=== PATIENT | female | born 1970 | race Hispanic/Latino ===

== ENCOUNTER → 2022-07-29 | Outpatient (CLI) | payer OTHER ==
[~2022-07-29] VITALS: Ht 2.5 cm; Wt 112.0 kg
== END | disposition home or self-care (01) ==
LOC: DTH 09:06
PROVIDERS: ATTEND Surgery
DX: Z71.3 Dietary counseling and surveillance (principal); E66.01 Morbid (severe) obesity due to excess calories; E11.9 Type 2 diabetes mellitus without complications; I10 Essential (primary) hypertension; M19.91 Primary osteoarthritis, unspecified site; K21.9 Gastro-esophageal reflux disease without esophagitis; G47.33 Obstructive sleep apnea (adult) (pediatric); Z68.42 Body mass index [BMI] 45.0-49.9, adult
CPT/HCPCS: 97802

== ENCOUNTER 2022-09-22 11:00 | Inpatient (IN) | payer OTHER ==
[~2022-09-22] VITALS: Ht 154.9 cm; Wt 105.4 kg
[2022-09-22 12:03] LABS: BASOPHILS % (AUTO) 0.8 % (0.0-5.0); EOSINOPHILS % (AUTO) 1.6 % (0.0-8.0); HEMATOCRIT 36.6 % (36-48); LYMPHOCYTES % (AUTO) 29.3 % (21.0-51.0); MEAN CORPUSCULAR HEMOGLOBIN 26.2 pg (27.0-33.0); MEAN CORPUSCULAR HGB CONC 30.6 g/dL (32.0-36.0); MEAN CORPUSCULAR VOLUME 85.7 fL (79-99); MONOCYTES % (AUTO) 6.1 % (3.0-13.0); NEUTROPHILS % (AUTO) 61.8 % (40.0-77.0); PLATELET COUNT (AUTO) 384 K/uL (130-400); RED BLOOD CELL COUNT(AUTO) 4.27 MIL/uL (4.00-5.50); RED CELL DISTRIBUTION WIDTH 15.3 % (11.0-15.5); WHITE BLOOD COUNT (AUTO) 7.3 K/uL (4.8-10.8)
[2022-09-22 12:15] LABS: INR 0.93 (0.85-1.15); PROTHROMBIN TIME 10.5 SEC (9.6-11.6)
[2022-09-22 12:16] LABS: PARTIAL THROMBOPLASTIN TIME 27.3 SEC (26.3-35.5)
[2022-09-22 12:18] VITALS: BP 117/55; PULSE 62; RESP 20
[2022-09-22] MEDS ORDERED: LOSA50TA64 PO (12:31)
[2022-09-22 12:36] LABS: CREATININE 0.7 mg/dL (0.5-1.5); POTASSIUM 3.9 mmol/L (3.5-5.1)
[2022-09-26] VITALS (27 sets, daily range): BP systolic 124–165; BP diastolic 52–92; PULSE 58–97; RESP 16–21
[2022-09-26] MEDS ORDERED: CEFAZOLIN SODIUM 1 GM VIAL ONE (10:20)
[2022-09-26] MEDS ORDERED: LACTATED RINGERS 1000ML 1,000 ML IV ONE (10:20)
[2022-09-26] MEDS ORDERED: DEXAMETHASONE SOD PHOSPHATE 10MG/ML 1ML VIAL ONE (10:32)
[2022-09-26] MEDS ORDERED: GLYCOPYRROLATE 1 MG/5 ML SYRINGE ONE (10:32)
[2022-09-26] MEDS ORDERED: ONDANSETRON 4MG INJ ONE ×2 (10:32→13:58)
[2022-09-26] MEDS ORDERED: LIDOCAINE PF 100MG/5ML (2%) SYRINGE 5ML ONE (10:32)
[2022-09-26] MEDS ORDERED: SUCCINYLCHOLINE 200MG/10ML SYR ONE (10:32)
[2022-09-26] MEDS ORDERED: PROPOFOL 10 MG/ML 20ML VIAL IV ONE (10:33)
[2022-09-26] MEDS ORDERED: ROCURONIUM 10MG/1ML SYR 10 MG/ML ML ONE (10:33)
[2022-09-26] MEDS ORDERED: FENTANYL CITRATE PF 50 MCG/1 ML 2ML VIAL ONE ×3 (10:33→14:01)
[2022-09-26] MEDS ORDERED: MIDAZOLAM HCL 1 MG/ML 2ML VIAL ONE (10:33)
[2022-09-26] MEDS ORDERED: BUPIVACAINE/PF 0.5% 10ML VIAL ONE (11:21)
[2022-09-26] MEDS ORDERED: METHYLENE BLUE 5 MG/ML AMP ONE (11:21)
[2022-09-26] MEDS ORDERED: HEPARIN 1,000 UNIT VIAL ONE (11:46)
[2022-09-26] MEDS ORDERED: HEPARIN 5,000 UNIT VIAL ONE (11:48)
[2022-09-26] MEDS ORDERED: CEFAZOLIN SODIUM 3 GM VIAL IVPB ONE (12:02)
[2022-09-26] MEDS ORDERED: MEPERIDINE-PF 25 MG/ML SYG ONE (13:58)
[2022-09-26] MEDS ORDERED: MORPHINE 4 MG SYG IVP PRN (16:00)
[2022-09-26] MEDS: LACTATED RINGERS 1000ML 1,000 ML IV SCH (16:00)
[2022-09-26] MEDS ORDERED: MORPHINE 2 MG SYG IM PRN (16:00)
[2022-09-26] MEDS ORDERED: PROMETHAZINE HCL 25 MG/ML 1ML AMPULE IM PRN (16:00)
[2022-09-26] MEDS ORDERED: MORPHINE PCA 50MG/50ML NS IV SCH (16:00)
[2022-09-26] MEDS ORDERED: MORPHINE 2 MG SYG IVP PRN (16:00)
[2022-09-26] MEDS ORDERED: MEPERIDINE-PF 25 MG/ML SYG IVP PRN (16:00)
[2022-09-26] MEDS: HEPARIN 5,000 UNIT VIAL SQ SCH (18:13)
[2022-09-26] MEDS: FAMOTIDINE 20MG VIAL IV SCH (21:05)
[2022-09-27] VITALS: BP 133/67; PULSE 78; RESP 20
[2022-09-27] MEDS: LACTATED RINGERS 1000ML 1,000 ML IV SCH ×2 (01:12→12:00)
[2022-09-27 04:00] VITALS: BP 150/80; PULSE 87; RESP 20
[2022-09-27] MEDS: HEPARIN 5,000 UNIT VIAL SQ SCH ×2 (04:03→16:00)
[2022-09-27 08:00] VITALS: BP 135/65; PULSE 85; RESP 16; O2SAT 94
[2022-09-27] MEDS: FAMOTIDINE 20MG VIAL IV SCH (08:52)
[2022-09-27 11:56] VITALS: BP 154/82; PULSE 82; RESP 20
[2022-09-27 16:00] VITALS: BP 111/54; PULSE 71; RESP 20
[2022-09-27] MEDS ORDERED: TYL3LL PO (16:38)
== END 2022-09-27 17:45 | disposition home or self-care (01) | DRG 621 ==
LOC: DAHIP 09-26 09:47 → 4BH 09-26 15:05
PROVIDERS: ADMIT Surgery; ATTEND Surgery
PROC: 0DB64Z3 Excision of Stomach, Percutaneous Endoscopic Approach, Vertical (ICD-10-PCS; principal; 2022-09-26 12:26)
DX: E66.01 Morbid (severe) obesity due to excess calories (principal); E88.81 Metabolic syndrome and other insulin resistance; F41.9 Anxiety disorder, unspecified; Z20.822 Contact with and (suspected) exposure to COVID-19; I10 Essential (primary) hypertension; Z68.41 Body mass index [BMI] 40.0-44.9, adult
CPT/HCPCS: 36415; 80048; 81025; 82948; 84703; 85025; 85610; 85730; 87426; 93005; 97039; G0378; J0330; J0690; J1100; J1644; J2001; J2175; J2250; J2270; J2405; J2550; J2704; J3010; J3490; J7030; J7120; Q9968; A4215; A4221; A4222; A4223; A4600; A4649; A4663; A4930; A6260; G8980-CI; G8983-CI

== ENCOUNTER 2023-01-12 19:39 | Emergency (ER) | payer BC, OTHER ==
[~2023-01-12] VITALS: Ht 154.9 cm; Wt 89.8 kg
[~2023-01-12 19:39] MED LIST: LOSA50TA64 PO
[2023-01-12] MEDS ORDERED: AMLO-257 PO (20:03)
[2023-01-12] MEDS ORDERED: LOSA50TA64 PO (20:03)
[2023-01-12 20:18] LABS: BASOPHILS # (AUTO) 0.06 K/uL (0.00-0.20); BASOPHILS % (AUTO) 0.6 % (0.0-5.0); HEMATOCRIT 35.4 % (36-48); IMMATURE GRANULOCYTE ABSOLUTE 0.05 K/uL (0-1); LYMPHOCYTES # (AUTO) 1.9 K/uL (1.0-4.8); LYMPHOCYTES % (AUTO) 18.3 % (21.0-51.0); MEAN CORPUSCULAR HEMOGLOBIN 27.4 pg (27.0-33.0); MEAN CORPUSCULAR HGB CONC 31.9 g/dL (32.0-36.0); MEAN CORPUSCULAR VOLUME 85.9 fL (79-99); MONOCYTES # (AUTO) 0.8 K/uL (0.1-1.0); MONOCYTES % (AUTO) 7.8 % (3.0-13.0); NEUTROPHILS # (AUTO) 7.5 K/uL (1.8-7.7); NEUTROPHILS % (AUTO) 71.8 % (40.0-77.0); PLATELET COUNT (AUTO) 346 K/uL (130-400); RED BLOOD CELL COUNT(AUTO) 4.12 MIL/uL (4.00-5.50); RED CELL DISTRIBUTION WIDTH 14.2 % (11.0-15.5); WHITE BLOOD COUNT (AUTO) 10.5 K/uL (4.8-10.8)
[2023-01-12 20:26] LABS: CREATININE 0.8 mg/dL (0.5-1.5)
[2023-01-12 20:30] LABS: ALBUMIN 3.6 g/dL (3.5-5.0); TOTAL PROTEIN, SERUM 7.4 g/dL (6.0-8.3)
[2023-01-12] MEDS ORDERED: FAMOTIDINE 20MG VIAL IV ONE (20:30)
[2023-01-12] MEDS ORDERED: MORPHINE 4 MG SYG IVP ONE (20:30)
[2023-01-12] MEDS ORDERED: METOCLOPRAMIDE 10 MG/2 ML VIAL IVP ONE (20:30)
[2023-01-12] MEDS ORDERED: LACTATED RINGERS 1000ML 1,000 ML IV ONE (20:30)
[2023-01-12 22:31] LABS: APPEARANCE,URINE CLOUDY (CLEAR); BILIRUBIN,URINE NEGATIVE (NEGATIVE); COLOR,URINE YELLOW (YELLOW); GLUCOSE, URINE (UA) NEGATIVE (NEGATIVE); KETONES,URINE 20 mg/dL (NEGATIVE); LEUKOCYTE ESTERASE ,URINE NEGATIVE Leu/uL (NEGATIVE); NITRATE,URINE NEGATIVE (NEGATIVE); OCCULT BLOOD,URINE NEGATIVE (NEGATIVE); PH,URINE 5.5 (5.0-8.0); PROTEIN,URINE 20 mg/dL (NEGATIVE)
[2023-01-12 22:35] LABS: ADD UA MICROSCOPIC YES
[2023-01-12 22:54] LABS: MUCUS,URINE MANY LPF (None Seen); SQUAMOUS EPITHELIAL CELL,UR MOD /HPF (0-2)
[2023-01-12] MEDS ORDERED: METO-296 PO (23:25)
[2023-01-12] MEDS ORDERED: PANT40TA PO (23:25)
[2023-01-12 23:38] VITALS: BP 132/79; PULSE 69; RESP 17; O2SAT 98
== END 2023-01-12 23:40 | disposition home or self-care (01) ==
LOC: EDH 19:39
DX: K29.70 Gastritis, unspecified, without bleeding (principal); I10 Essential (primary) hypertension; Z79.899 Other long term (current) drug therapy
CPT/HCPCS: 99284; 96374; 96375; 84484; 80053; 83690; 85025; 81001; 36415; 93005; J7120; J3490; J2270; J2765

== ENCOUNTER 2024-08-25 20:30 | Emergency (ER) | payer BC ==
[~2024-08-25] VITALS: Ht 152.4 cm; Wt 81.6 kg
[~2024-08-25 20:30] MED LIST changes: +AMLO-257 PO; +METO-296 PO; +PANT40TA PO
--- NOTE | 2024-08-25 21:05 | ERN ---
ED Note History of Present Illness Stated Complaint: BACK PAIN Chief Complaint: Back Pain-No Injury Time Seen by MD: 21:06 Time Seen by Midlevel: 21:06 Dictation: Ms. Wilson is a 54 year old female with history of obesity/gastric sleeve (2 years ago) who presented to the Emergency Department this evening for evaluation of back pain. She repots low back pain that began approximately 24 hours ago. She has had it at around 0400 she developed worsening bilateral flank/low back pain with chills, nausea, and vomiting. She states that the pain intensified this evening at 1700. She states she took dose OTC Azo which did not help. She denies history of similar symptoms/kidney stones. She denies fever, chills, shortness of breath, cough, chest pain, palpitations, edema, abdominal pain, hematemesis, constipation, diarrhea, melena, hematochezia, hematuria, headache, dizziness, or focal weakness/paresthesia Allergies: Coded Allergies: No Known Drug Allergies (Unverified Allergy, Unknown, 09/22/22) Home Meds Active Scripts Metoclopramide HCl (Reglan) 10 Mg Tablet, 10 MG PO QID, #120 TAB 2 Refills Prov:RENE COVARRUBIAS Sr., MD 01/12/23 Pantoprazole Sodium (Protonix) 40 Mg Tablet.dr, 40 MG PO DAILY, #30 TAB 2 Refills Prov:RENE COVARRUBIAS Sr., MD 01/12/23 Reported Medications Amlodipine Besylate (Amlodipine Besylate) 5 Mg Tablet, 5 MG PO DAILY, TAB 01/12/23 Losartan Potassium (Losartan Potassium) 50 Mg Tablet, 50 MG PO DAILY, TAB 01/12/23 Losartan Potassium (Losartan Potassium) 50 Mg Tablet, 50 MG PO AM, TAB 09/22/22 Past Medical History Past Medical History: No Pertinent History Surgical History: Cholecystectomy, Bariatric Surgery PSYCH History: no pertinent psych hx Social History: Negative, Lives with family LMP: Aug 18, 2024 RN Note Reviewed/Agreed w/PFSH: Yes Review of System Dictation REVIEW OF SYSTEMS: CONSTITUTIONAL: Patient denies fevers, sweats and weight changes. Reports fatigue and chills. EYES: Patient denies any visual symptoms. EARS, NOSE, AND THROAT: No difficulties with hearing. No symptoms of rhinitis or sore throat. CARDIOVASCULAR: Patient denies chest pains, palpitations, orthopnea and paroxysmal nocturnal dyspnea. RESPIRATORY: No dyspnea on exertion, no wheezing or cough. GI: No diarrhea, constipation, abdominal pain, hematochezia or melena. Reports nausea and vomiting. : No urinary hesitancy or dribbling. No nocturia or urinary frequency. No abnormal urethral discharge. Reports low back/bilateral flank pain. MUSCULOSKELETAL: No myalgias or arthralgias. NEUROLOGIC: No chronic headaches, no seizures. Patient denies numbness, tingling or weakness. PSYCHIATRIC: Patient denies problems with mood disturbance. No problems with anxiety. ENDOCRINE: No excessive urination or excessive thirst. DERMATOLOGIC: Patient denies any rashes or skin changes. Initial Vital Sign VS Vital Signs Date Time Temp Pulse Resp B/P (MAP) Pulse Ox O2 Delivery O2 Flow Rate FiO2 08/25/24 20:32 98.8 80 19 146/91 98 Room Air 0 08/25/24 22:08 21 Physical Exam Dictation Vital signs: Reviewed. Afebrile. Constitutional: Uncomfortable/tearful Accompanied by significant other. Head/Face: Normocephalic, atraumatic. Eyes: Periorbital areas with no swelling, redness, or edema. Lids and lashes are normal. Conjunctival injection is absent. Sclera anicteric. Pupils equal, round, reactive to light. ENT: Pinnas intact and no signs of trauma or erythema. Ear canals clear and no discharge. TMs no erythema. No nasal discharge or bleeding noted. Oropharynx with no exudate, redness, swelling, masses, exudates, or evidence of obstruction. Uvula midline. Mucous membranes moist. Neck: Trachea midline, no masses palpated, and no cervical lymphadenopathy. No swelling. Supple, full range of motion. Chest/Axilla: No tenderness, no crepitus, no paradoxical movement, no retractions. Cardiovascular: Regular rate, regular rhythm, no murmur, no gallops. Symmetric pulses. No peripheral edema. Respiratory: Respirations even and unlabored. Lung sounds clear; no wheezes, rales or rhonchi. Room air spo2 98%. Gastrointestinal: Obese. No distention is appreciated. Bowel sounds are normal. No mass or organomegaly . There is no tenderness. No rebound. No rigidity. No voluntary or involuntary guarding. No Mittal's sign. : Urine cloudy/villalobos colored. + CVA tenderness bilaterally (worse on left) Neurological: Normal speech, gross motor function intact, gross sensory function intact. No focal weakness/Paresthesia. Musculoskeletal/Extremities: All extremities have full range of motion, no pain or tenderness on palpation. Symmetric pulses. Integumentary: Intact. Skin is normal color, warm and dry. Cap refill less than 2 seconds. Results (Laboratory/Radiology) Laboratory/Radiology Laboratory Tests Test 08/25/24 21:35 08/25/24 21:38 White Blood Count 12.2 K/uL (4.8-10.8) H Red Blood Count 4.10 MIL/uL (4.00-5.50) Hemoglobin 11.4 g/dL (12.0-16.0) L Hematocrit 35.6 % (36-48) L Mean Corpuscular Volume 86.8 fL (79-99) Mean Corpuscular Hemoglobin 27.8 pg (27.0-33.0) Mean Corpuscular Hemoglobin Concent 32.0 g/dL (32.0-36.0) Red Cell Distribution Width 14.1 % (11.0-15.5) Platelet Count 366 K/uL (130-400) Mean Platelet Volume 11.5 fL (7.5-10.5) H Immature Granulocyte % (Auto) 0.5 % (0-1) Neutrophils (%) (Auto) 72.6 % (40.0-77.0) Lymphocytes (%) (Auto) 17.9 % (21.0-51.0) L Monocytes (%) (Auto) 7.1 % (3.0-13.0) Eosinophils (%) (Auto) 1.2 % (0.0-8.0) Basophils (%) (Auto) 0.7 % (0.0-5.0) Neutrophils # (Auto) 8.8 K/uL (1.8-7.7) H Lymphocytes # (Auto) 2.2 K/uL (1.0-4.8) Monocytes # (Auto) 0.9 K/uL (0.1-1.0) Eosinophils # (Auto) 0.15 K/uL (0.00-0.70) Basophils # (Auto) 0.08 K/uL (0.00-0.20) Absolute Immature Granulocyte (auto 0.06 K/uL (0-1) Nucleated Red Blood Cells 0.0 % (0.0-0.19) Sodium Level 139 mmol/L (136-145) Potassium Level 3.8 mmol/L (3.5-5.1) Chloride Level 101 mmol/L (101-111) Carbon Dioxide Level 28 mmol/L (21-32) Blood Urea Nitrogen 17 mg/dL (7-18) Creatinine 0.8 mg/dL (0.5-1.0) Glomerular Filtration Rate Calc 89 mL/min (>90) Random Glucose 97 mg/dL (70-105) Total Calcium 9.3 mg/dL (8.5-10.1) Urine Color DARK-YELLOW (YELLOW) Urine Appearance CLOUDY (CLEAR) H Urine pH 6.0 (5.0-8.0) Urine Specific [place] 1.008 (1.001-1.031) Urine Protein 100 mg/dL (NEGATIVE) H Urine Glucose (UA) NEGATIVE mg/dL (NEGATIVE) Urine Ketones NEGATIVE mg/dL (NEGATIVE) Urine Occult Blood LARGE (NEGATIVE) H Urine Nitrate 1+ (NEGATIVE) H Urine Bilirubin NEGATIVE mg/dL (NEGATIVE) Urine Urobilinogen 0.2 mg/dL (0.2-1.0) Urine Leukocyte Esterase 500 Carlos/uL (NEGATIVE) H Urine RBC TNTC /HPF (0-1) H Urine WBC 51-100 /HPF (0-1) H Urine WBC Clumps (Auto) MOD /HPF (0-1) Urine Squamous Epithelial Cells RARE /HPF (0-2) Urine Other Crystals (Auto) 10 /HPF (None Seen) Urine Bacteria RARE /HPF (None Seen) Urine Yeast MOD /HPF (None Seen) Urine HCG, Qualitative NEGATIVE (NEGATIVE) Labs Reviewed?: Yes ED Course ED Course Orders Procedure Category Date Status Time Urinalysis Profile LAB 08/25/24 Complete 21:05 Cbc With Differential LAB 08/25/24 Complete 21:05 Basic Metabolic Panel LAB 08/25/24 Complete 21:05 ,Urine Test LAB 08/25/24 Complete 21:20 Ct Abdomen/Pelvis W/O CT 08/25/24 Resulted Contrast 21:20 Ketorolac 60mg/2ml PHA 08/25/24 Complete (Toradol 60mg/2ml) 21:30 Hydrocodone/Apap PHA 08/25/24 Complete 5/325 ([place] 5/325mg) 21:30 Culture Urine ARELY 08/25/24 In Process 21:53 Ceftriaxone 1g Vial PHA 08/25/24 Complete (Rocephine 1g Inj) 23:00 Current Medications Medications (Trade) Dose Ordered Sig/Kristie Route PRN Reason Start Time Stop Time Status Last Admin Dose Admin Acetaminophen/ Hydrocodone Bitart (NORco 5/325MG) 1 tab ONCE ONCE PO 08/25/24 21:30 08/25/24 21:31 DC 08/25/24 21:45 Ceftriaxone Sodium (ROCEphine 1G INJ) 1 gm ONCE ONCE IVPB 08/25/24 23:00 08/25/24 23:01 DC 08/25/24 23:00 Ketorolac Tromethamine (toRADol 60MG/ 2ML) 30 mg ONCE ONCE IM 08/25/24 21:30 08/25/24 21:31 DC 08/25/24 21:45 Vital Signs Date Time Temp Pulse Resp B/P (MAP) Pulse Ox O2 Delivery O2 Flow Rate FiO2 08/25/24 23:15 97.7 72 16 115/58 97 Room Air* 0 08/25/24 22:08 97.5 79 18 122/67 98 Room Air* 0 21 08/25/24 20:32 98.8 80 19 146/91 98 Room Air 0 Vital signs remained stable; afebrile and normotensive with room air SpO2 98%. Laboratory findings as noted below. WBCs 12.2, H/H 11.4/35.6. UA cloudy; + leukocyte esterase, nitrate, and UWBC 5111-100. UCX pending. While int ED she received doses [place], Toradol, and Rocephin. CT abdomen/pelvis with results pending. Case signed out at this time to Dr. Layton. Medical Decision Making MDM MDM: Differential diagnosis: UTI, pyelonephritis, sepsis, kidney stone Rationale: Tests considered and ordered secondary to shared decision making include: labs, ECG and radiology Previous outside records reviewed: Old ER visits. Risk of complication and/or morbidity or mortality of patient management: None Medications-Per medication reconciliation Need for hospitalization: Patient does meet criteria for hospitalization. Need for emergency major/minor surgery: No There are no social concerns with this patient. Prescription drug management Prescriptions will include symptomatic care Patient's prior external medical records from other ER visits were reviewed by me as indicated. Prior testing and results from previous visits were reviewed. Prior tests were taken into account with medical decision making and resource utilization, independent historian/historians were used to obtain complete medical history. I independently interpreted the test that were performed, results were reviewed by me and considered findings on radiology if ordered. Medical management and examination interpretation discussions were had by me wit h other qualified healthcare professionals as indicated for the patient's care. 08/26/2024 12[address] scan which shows fat stranding immediately related to cystitis. Patient will be given Bactrim as well as fluids. Patient feels that she is able to go home. IMPRESSION: 1. The bladder is moderately distended with adjacent fat stranding immediately related to cystitis. Urinalysis correlation maybe helpful. DX & DISP Disposition: Discharge Departure Impression: Primary Impression: Pain, flank, bilateral Additional Impression: UTI (urinary tract infection) Condition: Stable Scripts Nitrofurantoin Macrocrystal (Nitrofurantoin) 100 Mg Capsule 1 CAP PO BID for 7 Days, #14 CAP 0 Refills Prov: BEATRIS LAYTON MD 08/26/24 Referrals: JOHN CEE MD (PCP) DIONNA DUKE NP Aug 25, 2024 21:05 BEATRIS LAYTON MD Aug 26, 2024 00:21
[2024-08-25] MEDS: ketOROlac 60 MG VIAL (30MG/ML) IM ONE (21:45)
[2024-08-25] MEDS: HYDROcodone/APAP 5/325 1 TAB TABLET PO ONE (21:45)
[2024-08-25 21:47] LABS: BASOPHILS # (AUTO) 0.08 K/uL (0.00-0.20); BASOPHILS % (AUTO) 0.7 % (0.0-5.0); EOSINOPHILS # (AUTO) 0.15 K/uL (0.00-0.70); EOSINOPHILS % (AUTO) 1.2 % (0.0-8.0); HEMATOCRIT 35.6 % (36-48); IMMATURE GRANULOCYTE ABSOLUTE 0.06 K/uL (0-1); LYMPHOCYTES # (AUTO) 2.2 K/uL (1.0-4.8); LYMPHOCYTES % (AUTO) 17.9 % (21.0-51.0); MEAN CORPUSCULAR HEMOGLOBIN 27.8 pg (27.0-33.0); MEAN CORPUSCULAR VOLUME 86.8 fL (79-99); MONOCYTES # (AUTO) 0.9 K/uL (0.1-1.0); MONOCYTES % (AUTO) 7.1 % (3.0-13.0); NEUTROPHILS # (AUTO) 8.8 K/uL (1.8-7.7); NEUTROPHILS % (AUTO) 72.6 % (40.0-77.0); PLATELET COUNT (AUTO) 366 K/uL (130-400); RED CELL DISTRIBUTION WIDTH 14.1 % (11.0-15.5); WHITE BLOOD COUNT (AUTO) 12.2 K/uL (4.8-10.8)
[2024-08-25 21:51] LABS: APPEARANCE,URINE CLOUDY (CLEAR); BILIRUBIN,URINE NEGATIVE (NEGATIVE); COLOR,URINE DARK-YELLOW (YELLOW); GLUCOSE, URINE (UA) NEGATIVE (NEGATIVE); KETONES,URINE NEGATIVE (NEGATIVE); LEUKOCYTE ESTERASE ,URINE 500 Leu/uL (NEGATIVE); NITRATE,URINE 1+ (NEGATIVE); OCCULT BLOOD,URINE LARGE (NEGATIVE); PROTEIN,URINE 100 mg/dL (NEGATIVE); UROBILINOGEN,URINE 0.2 mg/dL (0.2-1.0)
[2024-08-25 21:53] LABS: CREATININE 0.8 mg/dL (0.5-1.0); POTASSIUM 3.8 mmol/L (3.5-5.1)
[2024-08-25 21:53] LABS: ADD UA MICROSCOPIC YES
[2024-08-25 21:55] LABS: BACTERIA,URINE RARE /HPF (None Seen); RBC,URINE TNTC /HPF (0-1); SQUAMOUS EPITHELIAL CELL,UR RARE /HPF (0-2); UNCLASSIFIED CRYSTAL 10 /HPF (None Seen); WBC CLUMP MOD /HPF (0-1); WBC,URINE 51-100 /HPF (0-1); YEAST,URINE BUDDING MOD /HPF (None Seen)
--- NOTE | 2024-08-25 22:59 | HMCIMG ---
CT ABDOMEN/PELVIS W/O CONTRAST HISTORY: Bilateral flank pain COMPARISON: None TECHNIQUE: Multiple sequential axial images of the abdomen and pelvis were obtained from the dome of the diaphragm through symphysis pubis. Patient was not given contrast through intravenous route. Oral contrast was not given. FINDINGS: No pleural effusion is seen bilaterally. There is no evidence of parenchymal disease or pulmonary nodule of the visualized lower lungs. Degenerative changes of the thoracolumbar spine are present. The heart is not enlarged. Liver measures 15.4 cm. Post cholecystectomy changes are seen. Post gastric bypass surgical changes are seen. There is periumbilical hernia with fat content. The liver, spleen, adrenal glands and pancreas are unremarkable. There is no evidence of hydronephrosis bilaterally. No evidence of renal stone is seen. Fecal material is seen in the colon. There are normal size retroperitoneal and mesenteric lymph nodes. No ascites is seen. Atherosclerotic changes are present. Pelvic sidewalls are symmetric bilaterally. The bladder is moderately distended with adjacent fat stranding immediately related to cystitis. Urinalysis correlation maybe helpful. IMPRESSION: 1. The bladder is moderately distended with adjacent fat stranding immediately related to cystitis. Urinalysis correlation maybe helpful. CT was performed with one or more following dose reduction techniques: automated exposure control, adjustment of the mA and kv according to patient's size, or use of a iterative reconstruction technique.
[2024-08-25] MEDS: cefTRIAXone 1G VIAL IVPB ONE (23:00)
[2024-08-26] MEDS ORDERED: NITR100C PO (00:20)
[2024-08-26] MEDS ORDERED: SULF1TAB42 PO (00:20)
[2024-08-26] MEDS: 0.9%NACL 1000ML 909 ML IV ONE (00:37)
[2024-08-26 02:00] VITALS: BP 114/51; PULSE 81; RESP 17; TEMP 97.8; O2SAT 97
== END 2024-08-26 02:05 | disposition home or self-care (01) ==
LOC: EDH 20:30
DX: N39.0 Urinary tract infection, site not specified (principal); R10.9 Unspecified abdominal pain; Z79.899 Other long term (current) drug therapy; Z90.49 Acquired absence of other specified parts of digestive tract
CPT/HCPCS: 99284; 74176; 96365; 80048; 85025; 87086 ×2; 87186; 81001; 81025; 36415; 96372; J1885; J0696